=== PATIENT | female | born 1995 | race Asian ===

== ENCOUNTER 2018-02-22 19:47 | Emergency (ER) | payer MEDICAID, SELFPAY ==
[2018-02-22 20:15] LABS: Bilirubin Negative (Negative); Blood, Urine Moderate (Negative); Clarity CLOUDY (Clear); Glucose, Urine (Dipstick) Negative (Negative); Leukocyte Large (Negative); Nitrite Positive (Negative); Protein, Urine (Dipstick) Negative (Neg-Trace); Specific Gravity, Urine 1.007 (1.002-1.036); Urobilinogen 0.2 mg/dL (0.2-1.0); pH, Urine 6.5 (5.0-9.0)
[2018-02-22] MEDS ORDERED: Ketorolac Tromethamine 30 MG/ML VIAL ONE (20:17)
[2018-02-22 20:18] LABS: Bacteria/HPF Rare-Few HPF (None Seen); Hyaline Casts/LPF 0-3 HYALINE CAST LPF (0-3 Hyaline); Pathc Cast-AUWi Flag 0.72 (0-2.49); RBC/HPF 0-3 HPF (0-3); Squamous Epithelial None Seen HPF (0-3)
[2018-02-22 20:41] LABS: #Eosinphils 0.3 thou/uL (0.0-0.7); #Monocytes 0.9 thou/uL (0.11-0.59); %Basophils 0.2 % (0.0-1.0); %Eosinophils 1.5 % (0.0-10.0); %Lymphocytes 23.3 % (21.0-51.0); %Monocytes 5.1 % (0.0-10.0); %Neutrophils 69.9 % (42.0-75.0); Hemoglobin 14.7 g/dL (12.0-16.0); Mean Corpuscular HGB CONC 34.9 g/dL (32.0-36.0); Mean Corpuscular Hemoglobin 31.6 pg (27.0-31.0); Mean Corpuscular Volume 90.4 fl (81.0-99.0); Mean Platelet Volume 7.2 fL (7.4-10.4); Platelet Count 253 thou/uL (130-400); RBC Distribution Width 11.5 % (11.5-14.5); Red Blood Cell (RBC) Count 4.66 mill/uL (4.20-5.40); White Blood Cell (WBC) Count 17.2 thou/uL (4.8-10.8)
[2018-02-22 20:49] LABS: BHCG - Serum Negative (NEGATIVE); Pregs Control Background? CLEAR/WHITE (CLR/WHITE); Pregs Control Bar Appear? YES (CONTROL BAR)
[2018-02-22 20:58] LABS: ALT (SGPT) 9 U/L (8-55); AST (SGOT) 12 U/L (5-34); Albumin 4.2 g/dL (3.5-5.0); Alkaline Phosphatase 62 U/L (40-150); Anion Gap 14 mmol/L (10-20); BUN (Urea Nitrogen) 6 mg/dL (7.0-18.7); Bilirubin, Total 0.3 mg/dL (0.2-1.2); Calc. Creatinine Clearance 0 mL/min (70-130); Calcium 9.4 mg/dL (7.8-10.44); Carbon Dioxide 22 mmol/L (22-29); Chloride 107 mmol/L (98-107); Estimated GFR-MDRD Greater than 90; Globulin 2.7 g/dL (2.4-3.5); Glucose 100 mg/dL (70-105); Lipase 16 U/L (8-78); Potassium 3.6 mmol/L (3.5-5.1); Protein, Total 6.9 g/dL (6.0-8.3); Sodium 139 mmol/L (136-145)
--- NOTE | 2018-02-22 21:47 | CT ---
NONCONTRAST CT ABDOMEN AND PELVIS: 02/22/2018 HISTORY: Intermittent achy and cramping right flank pain. COMPARISON: 09/03/2015 FINDINGS: A few calcified granulomata are seen in the spleen. The lung bases, liver, pancreas, bilateral adrenal glands, kidneys, urinary bladder, uterus, and adne xal structures demonstrate a grossly normal nonenhanced CT appearance. No renal or ureteral calculi are seen bilaterally. The appendix is normal in caliber and is filled with gas. A small amount of retained fecal material is seen in the ascending colon. No dilated loops of small bowel are seen. The free fluid in the pel vis noted on the prior exam has resolved. IMPRESSION: 1. No renal or ureteral calculi are seen bilaterally. 2. No CT evidence of appendicitis. POS: [id number]
== END 2018-02-22 21:50 | disposition home or self-care (01) ==
LOC: ERS 19:47
DX: F32.9 Major depressive disorder, single episode, unspecified; F41.9 Anxiety disorder, unspecified; F17.210 Nicotine dependence, cigarettes, uncomplicated; N30.01 Acute cystitis with hematuria
CPT/HCPCS: 74176; 80053; 81003; 81015; 83690; 84703; 85025; 87077; 87086; 87186; 96361; 96374; J1885